=== PATIENT | male | born 1955 | race Caucasian/White ===

== ENCOUNTER 2021-02-19 10:28 | Day surgery (SDC) | payer OTHER, SELFPAY ==
[~2021-02-19] VITALS: Ht 157.5 cm; Wt 56.7 kg
[2021-02-19] MEDS ORDERED: MIDAZOLAM 5 MG/5 ML VIAL ONE (13:11)
[2021-02-19] MEDS ORDERED: LIDOCAINE 2% 100 MG/5 ML UJET TP ONE (13:11)
[2021-02-19] MEDS ORDERED: fentaNYL citrate 0.05 MG/ML VIAL ONE (13:11)
[2021-02-19] MEDS ORDERED: fentaNYL citrate 0.05 MG/ML VIAL IVP ONE (15:15)
== END 2021-02-19 15:30 | disposition home or self-care (01) ==
LOC: MDS 10:28 → MMU 10:29 → MDS 15:30
PROVIDERS: ATTEND Internal Medicine Gastroenterology
DX: K59.1 Functional diarrhea (principal); D12.3 Benign neoplasm of transverse colon; D12.8 Benign neoplasm of rectum; D12.0 Benign neoplasm of cecum; K57.30 Diverticulosis of large intestine without perforation or abscess without bleeding; Z86.73 Personal history of transient ischemic attack (TIA), and cerebral infarction without residual deficits; E78.5 Hyperlipidemia, unspecified; Z20.828 Contact with and (suspected) exposure to other viral communicable diseases; F17.200 Nicotine dependence, unspecified, uncomplicated; Z79.899 Other long term (current) drug therapy
CPT/HCPCS: 45385; 88305; J3010; U0003; J2250

== ENCOUNTER 2021-04-02 05:33 | Day surgery (SDC) | payer OTHER, SELFPAY ==
[~2021-04-02] VITALS: Ht 160 cm; Wt 56.7 kg
[2021-04-02 06:53] LABS: ALBUMIN 3.9 g/dL (3.4-5.0); ANION GAP 17.1 (8-16); CARBON DIOXIDE 21.7 mmol/L (21-32); CREATININE 0.9 mg/dL (0.6-1.3); POTASSIUM 3.8 mmol/L (3.5-5.1); TOTAL BILIRUBIN 1.6 mg/dL (0.0-1.0)
[2021-04-02] MEDS ORDERED: ONDANSETRON 4 MG/2 ML VIAL IVP PRN (07:30)
[2021-04-02] MEDS ORDERED: diphenhydrAMINE 50 MG/ML VIAL IVP PRN (07:30)
[2021-04-02] MEDS ORDERED: LACTATED RINGERS 1,000 ML IV SCH (07:30)
[2021-04-02] MEDS ORDERED: MEPERIDINE 25 MG/ML SYR IVP PRN (07:30)
[2021-04-02] MEDS ORDERED: DEXAMETHASONE 4 MG/ML VIAL ONE (08:06)
[2021-04-02] MEDS ORDERED: PROPOFOL 200 MG/20 ML VIAL IV ONE (08:06)
[2021-04-02] MEDS ORDERED: MEPERIDINE 25 MG/ML SYR ONE (08:06)
[2021-04-02] MEDS ORDERED: fentaNYL citrate 0.05 MG/ML VIAL ONE (08:06)
[2021-04-02] MEDS ORDERED: LIDOCAINE MPF 2% 100 MG/5 ML VIAL INJ ONE (08:06)
== END 2021-04-02 10:20 | disposition home or self-care (01) ==
LOC: MDS 05:33 → MMU 06:03 → MDS 10:20
PROVIDERS: ATTEND Internal Medicine Gastroenterology
DX: Z12.11 Encounter for screening for malignant neoplasm of colon (principal); D12.0 Benign neoplasm of cecum; K57.30 Diverticulosis of large intestine without perforation or abscess without bleeding; F17.210 Nicotine dependence, cigarettes, uncomplicated; Z86.010 Personal history of colon polyps; Z79.899 Other long term (current) drug therapy; Z20.822 Contact with and (suspected) exposure to COVID-19
CPT/HCPCS: 36415; 45385; 71045; 80053; 93005; J1100; J2001; J2175; J2704; J3010; J7030; U0003